=== PATIENT | male | born 1955 | race African-American/Black ===

== ENCOUNTER 2020-10-15 17:53 | Emergency (ER) | payer OTHER ==
[2020-10-15 18:48] LABS: BILIRUBIN NEGATIVE (NEGATIVE); BLOOD NEGATIVE Ery/uL (NEGATIVE); CLARITY CLEAR (CLEAR); COLOR YELLOW (YELLOW); GLUCOSE (U) NORMAL (NORMAL); LEUKOCYTES NEGATIVE Leu/uL (NEGATIVE); NITRITE NEGATIVE (NEGATIVE); PROTEIN NEGATIVE (NEGATIVE); SPECIFIC GRAVITY >=1.030 (1.001-1.030); UROBILINOGEN 0.2 mg/dL (0.2-1.0); pH 6.5 (5.0-9.0)
[2020-10-15] MEDS ORDERED: VOLTAREN **OUT50 MG PO (19:31)
[2020-10-15] MEDS ORDERED: CYCLOBENZAPRINE10 MG PO (19:31)
== END 2020-10-15 19:55 | disposition home or self-care (01) ==
LOC: FER 17:53
PROVIDERS: Physician Assistant Medical
DX: M54.5 Low back pain (principal); F17.210 Nicotine dependence, cigarettes, uncomplicated
CPT/HCPCS: 81003; J1885